=== PATIENT | male | born 1950 | race Caucasian/White ===

== ENCOUNTER 2022-09-08 10:03 | Emergency (ER) | payer BC, MEDICARE, OTHER ==
[~2022-09-08] VITALS: Ht 154.9 cm; Wt 65.8 kg
[2022-09-08] MEDS ORDERED: CYCL5TAB PO (10:34)
[2022-09-08] MEDS ORDERED: IBUP-1955 PO (10:34)
[2022-09-08] MEDS ORDERED: LIDO1ADH82 TP (10:34)
[2022-09-08 10:42] VITALS: BP 139/91; O2SAT 97
== END 2022-09-08 10:43 | disposition home or self-care (01) ==
LOC: ER 10:03
DX: M54.50 Low back pain, unspecified (principal); Z79.1 Long term (current) use of non-steroidal anti-inflammatories (NSAID); Z79.899 Other long term (current) drug therapy
CPT/HCPCS: A4663